=== PATIENT | female | born 1995 | race Caucasian/White ===

== ENCOUNTER 2024-06-12 16:18 | Emergency (ER) | payer OTHER ==
[~2024-06-12] VITALS: Ht 154.9 cm; Wt 81.6 kg
[2024-06-12 16:30] VITALS: O2SAT 98
[2024-06-12 17:35] LABS: BASOPHILS % 0.2 % (0.0-2.0); EOSINOPHILS % 0.3 % (0.0-5.0); HEMATOCRIT. 44.6 % (36.0-48.0); HEMOGLOBIN. 14.9 g/dL (12.0-16.0); LYMPHOCYTES % 7.7 % (20.0-50.0); MEAN CORPUSCULAR HEMOGLOBIN 29.5 pg (28.0-32.0); MEAN CORPUSCULAR HGB CONC 33.3 g/dL (31.0-37.0); MEAN CORPUSCULAR VOLUME 88.6 fL (81.0-99.0); MEAN PLATELET VOLUME 8.7 fl (7.4-10.4); MONOCYTES % 7.3 % (2.0-8.0); NEUTROPHILS % 84.5 % (40.0-76.0); PLATELET 215 x1000/uL (130-400); RED BLOOD CELL COUNT 5.04 mill/uL (4.2-5.4); RED CELL DISTRIBUTION WIDTH 12.9 % (11.6-14.6)
[2024-06-12 17:37] LABS: CHLORIDE 106 mEq/L (98-107); POTASSIUM 4.1 mEq/L (3.5-5.1); SODIUM 135 mEq/L (136-145)
[2024-06-12 17:38] LABS: CALCIUM 9.2 mg/dL (8.7-10.4); CARBON DIOXIDE 25 mEq/L (21-32)
[2024-06-12 17:43] LABS: CREATININE 0.9 mg/dL (0.6-1.0); GLUCOSE 97 mg/dL (70-105); UREA NITROGEN BLOOD 9 mg/dL (9-23)
[2024-06-12] MEDS: LACTATED RINGERS 1,000 ML IV SCH (17:48)
[2024-06-12] MEDS: METOCLOPRAMIDE HCL 10MG/2ML VIAL IV ONE (17:48)
[2024-06-12] MEDS: ACETAMINOPHEN 325MG TABLET PO ONE (17:48)
[2024-06-12 18:19] LABS: HCG SCREEN NEGATIVE
[2024-06-12] MEDS: KETOROLAC 15MG/ML VIAL IV ONE (19:16)
[2024-06-12] MEDS: DEXAMETHASONE 10 MG/ML VIAL IV ONE (19:16)
[2024-06-12 20:05] VITALS: BP 128/71; PULSE 96; RESP 18; TEMP 98.4
== END 2024-06-12 20:19 | disposition home or self-care (01) ==
LOC: ER 16:18
DX: R51.9 Headache, unspecified (principal); Z88.0 Allergy status to penicillin; Z88.4 Allergy status to anesthetic agent; Z98.890 Other specified postprocedural states; Z86.59 Personal history of other mental and behavioral disorders
CPT/HCPCS: 99285; 96374; 70450; 96375; 96361; 80048; 81025; 84703; 85025; 36415; J1100; J1885; J2765